=== PATIENT | female | born 1960 | race African-American/Black ===

== ENCOUNTER 2017-03-06 09:51 | Inpatient (IN) | payer OTHER ==
[2017-03-06 10:08] VITALS: BMI 18.8
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
[2017-03-06] MEDS ORDERED: P-EPHED 60MG/TRIPROLIDI 2.5MG TABLET PO PRN (10:29)
[2017-03-06] MEDS ORDERED: MAGNESIUM CITRATE 300 ML BOTTLE PO PRN (10:29)
[2017-03-06] MEDS ORDERED: chlordiazePOXIDE HCL 25 MG CAPSULE PO PRN (10:29)
[2017-03-06] MEDS ORDERED: MAGNESIUM HYDROX 2400MG/30ML ORAL SUSPENSION 30 ML CUP PO PRN (10:29)
[2017-03-06] MEDS ORDERED: hydrOXYzine PAMOATE 50 MG CAPSULE (FP) PO PRN (10:29)
[2017-03-06] MEDS ORDERED: ACETAMINOPHEN 325 MG TABLET (FP) PO PRN (10:29)
[2017-03-06] MEDS ORDERED: LOPERAMIDE HCL 2 MG CAPSULE PO PRN (10:29)
[2017-03-06] MEDS ORDERED: MAG HYDROX/AL HYDROX/SIMETH 30 ML UNIT-DOSE CUP PO PRN (10:29)
[2017-03-06] MEDS ORDERED: IBUPROFEN 400 MG TABLET (FP) PO PRN (10:29)
[2017-03-06] MEDS ORDERED: MENTHOL/PHENOL 1 EACH UD MM PRN (10:29)
[2017-03-06] MEDS ORDERED: ALBUTEROL SO4 6.7 GM HFA INHALER IH PRN (10:31)
[2017-03-06] MEDS ORDERED: chlordiazePOXIDE HCL 25 MG CAPSULE PO ONE (12:15)
[2017-03-06] MEDS: NICOTINE 14 MG/24 HOURS TOPICAL PATCH TD SCH (13:09)
[2017-03-06] MEDS: BUDESONIDE/FORMETEROL FUMARATE 160/4.5 mcg INHALER IH SCH ×2 (14:56→22:39)
[2017-03-06] MEDS: chlordiazePOXIDE HCL 25 MG CAPSULE PO SCH ×2 (18:00→22:38)
[2017-03-06] MEDS ORDERED: diphenhydrAMINE HCL 50 MG CAPSULE PO PRN (22:00)
[2017-03-06] MEDS: THIAMINE HCL 100 MG TABLET (FP) PO SCH (22:38)
[2017-03-07] MEDS: chlordiazePOXIDE HCL 25 MG CAPSULE PO SCH ×4 (05:46→22:33)
--- NOTE | 2017-03-07 09:35 | PN ---
S Progress Note Note: Psychiatry Attending's supervising floorperson note : Called to enter orders for risperdal and seroquel. Chart reviewed.S report is appreciated. Spoke to patient via telephone. Ms Banda is eager to resume medications. Pharmacy claims revisited.Doses verified. Patient is known to the [facility]. Followed by Dr Morris. Intervention : Seroquel 50 mg po hs Risperdal 1 mg po bid Ordered.Side effects/benefits discussed with patient.
[2017-03-07 10:02] LABS: MCH 29.1 pg (25.7-33.7); MCHC 32.5 g/dl (32.0-36.0); MEAN CELL VOLUME 89.5 fl (80-96); MEAN PLT VOLUME 8.5 fl (7.5-11.1); PLATELET COUNT 242 K/MM3 (134-434); RDW 16.5 % (11.6-15.6); WHITE BLOOD COUNT 4.8 K/mm3 (4.0-10.0)
[2017-03-07 10:07] LABS: ALBUMIN 3.4 g/dl (3.4-5.0); ALK PHOS 59 U/L (45-117); ANION GAP 7 (8-16); BILIRUBIN,TOTAL 0.9 mg/dL (0.2-1.0); CALCIUM 8.8 mg/dL (8.5-10.1); CO2 28 mmol/L (21-32); CREATININE 0.7 mg/dL (0.55-1.02); GLUCOSE,RANDOM 87 mg/dL (74-106); SGOT/AST 14 U/L (15-37); SGPT/ALT 20 U/L (12-78); TOT PROT 6.2 g/dl (6.4-8.2)
[2017-03-07 10:22] LABS: URINE APPEARANCE CLOUDY; URINE BILIRUBIN NEGATIVE (NEGATIVE); URINE COLOR DKYELLOW; URINE GLUCOSE (UA) NEGATIVE (NEGATIVE); URINE KETONE NEGATIVE (NEGATIVE); URINE NITRITE NEGATIVE (NEGATIVE); URINE PROTEIN NEGATIVE (NEGATIVE); URINE UROBILINOGEN NEGATIVE E.U./dl (0.2-1.0)
[2017-03-07 10:35] LABS: URINE BLOOD 2+ (NEGATIVE); URINE LEUK ESTERASE 3+ (NEGATIVE)
[2017-03-07] MEDS: PRENATAL VITAMINS W/ FOLIC ACID TABLET (FP) PO SCH (10:35)
[2017-03-07] MEDS: risperiDONE 1 MG TABLET (FP) PO SCH ×2 (10:35→22:32)
[2017-03-07] MEDS: BUDESONIDE/FORMETEROL FUMARATE 160/4.5 mcg INHALER IH SCH ×2 (10:36→22:33)
[2017-03-07] MEDS: NICOTINE 14 MG/24 HOURS TOPICAL PATCH TD SCH (10:38)
[2017-03-07 11:01] LABS: CALCIUM OXALATE CRYSTALS MODERATE /hpf (NONE SEEN); URINE MUCUS RARE; URINE RBC 33 /hpf (0-3); URINE WBC 126 /hpf (3-5)
--- NOTE | 2017-03-07 13:26 | PN ---
S CIWA - CIWA Score Nausea/Vomitin-No Nausea/No Vomiting Muscle Tremors: 3 Anxiety: 4-Mod. Anxious/Guarded Agitation: 4-Moderately Restless Paroxysmal Sweats: 3 Orientation: 0-Oriented Tacttile Disturbances: 0-None Auditory Disturbances: 0-None Visual Disturbances: 0-None Headache: 0-None Present CIWA-Ar Total Score: 14 BHS Progress Note (SOAP) Subjective: Anxiety,tremors,sweating,interrupted sleep,restless. Objective: 03/07/17 13:25 Vital Signs - 8 hr 03/07/17 03/07/17 06:00 09:56 Temperature 97.3 F L 98.2 F Pulse Rate 81 85 Respiratory 16 18 Rate Blood Pressure 96/67 113/75 Laboratory Tests 03/06/17 03/07/17 03/07/17 08:40 08:00 08:00 WBC 4.8 RBC 4.32 Hgb 12.6 Hct 38.7 MCV 89.5 MCHC 32.5 RDW 16.5 H Plt Count 242 MPV 8.5 Sodium 143 Potassium 4.0 Chloride 108 H Carbon Dioxide 28 Anion Gap 7 L BUN 14 Creatinine 0.7 Creat Clearance w eGFR > 60 Random Glucose 87 Calcium 8.8 Total Bilirubin 0.9 AST 14 L ALT 20 Alkaline Phosphatase 59 Total Protein 6.2 L Albumin 3.4 Urine Color Dkyellow Urine Appearance Cloudy Urine pH 5.0 Urine Protein Negative Urine Glucose (UA) Negative Urine Ketones Negative Urine Blood 2+ H Urine Nitrite Negative Urine Bilirubin Negative Urine Urobilinogen Negative Ur Leukocyte Esterase 3+ H Urine RBC 33 Urine WBC 126 Ur Epithelial Cells Many Calcium Oxalate Crystal Moderate Urine Mucus Rare RPR Titer 03/07/17 08:00 WBC RBC Hgb Hct MCV MCHC RDW Plt Count MPV Sodium Potassium Chloride Carbon Dioxide Anion Gap BUN Creatinine Creat Clearance w eGFR Random Glucose Calcium Total Bilirubin AST ALT Alkaline Phosphatase Total Protein Albumin Urine Color Urine Appearance Urine pH Urine Protein Urine Glucose (UA) Urine Ketones Urine Blood Urine Nitrite Urine Bilirubin Urine Urobilinogen Ur Leukocyte Esterase Urine RBC Urine WBC Ur Epithelial Cells Calcium Oxalate Crystal Urine Mucus RPR Titer Reactive 1:2 H labs noted,repeat u/a Assessment: 03/07/17 13:26 withdrawal sx. Plan: continue detox
[2017-03-07] MEDS: guaiFENesin/D-METHORPHAN HB 10 ML UNIT-DOSE CUPS PO PRN (14:07)
[2017-03-07] MEDS: THIAMINE HCL 100 MG TABLET (FP) PO SCH (22:32)
[2017-03-07] MEDS: QUEtiapine FUMARATE 50 MG TABLET PO SCH (22:32)
[2017-03-08] MEDS: guaiFENesin/D-METHORPHAN HB 10 ML UNIT-DOSE CUPS PO PRN (02:33)
[2017-03-08] MEDS: chlordiazePOXIDE HCL 25 MG CAPSULE PO SCH ×2 (06:20→10:41)
--- NOTE | 2017-03-08 09:11 | EKG ---
Test Reason : Blood Pressure : / mmHG Vent. Rate : 071 BPM Atrial Rate : 071 BPM P-R Int : 128 ms QRS Dur : 082 ms QT Int : 378 ms P-R-T Axes : 019 048 044 degrees QTc Int : 410 ms NORMAL SINUS RHYTHM WITH SINUS ARRHYTHMIA NORMAL ECG NO PREVIOUS ECGS AVAILABLE Confirmed by CONG MANDUJANO MD ([id number]) on 03/08/2017 9:10:45 AM Referred By: Confirmed By:CONG MANDUJANO MD
--- NOTE | 2017-03-08 09:28 | CONSULT ---
[facility] Psychiatric Consult - Data Date of interview: 03/08/17 Admission source: [facility] Identifying data: This is 56 years old female with psychiatric hospitalization history intoxicated with: Alcohol, Cannabis, Cocaine nad Nicotine Substance Abuse History: Smoking Cessation. Smoking history: Current every day smoker. Have you smoked in the past 12 months: Yes. Aproximately how many cigarettes per day: 10. Initiated information on smoking cessation: Yes. ' Breaking Loose' booklet given: 03/06/17 (give on floor). - Substance & Tx. History. Hx Alcohol Use: Yes. Hx Substance Use: Yes. Substance Use Type: Alcohol, Cocaine, Marijuana. Hx Substance Use Treatment: Yes ([facility]). - Substances Abused. Alcohol. Route: Oral. Frequency: Daily. Amount used: 2 pints, three 24 oz beers. Age of first use: 7. Date of Last Use: 03/05/17. Crack. Route: Smoking. Frequency: Daily. Amount used: four $20 hits. Age of first use: 15. Date of Last Use: 03/05/17. Marijuana/Hashish. Route: Smoking. Frequency: Daily. Amount used: 2 blunts. Age of first use: 7. Date of Last Use: 03/05/17. manuelito. Route: Inhalation. Frequency: 3-6 times per week. Amount used: three. Age of first use: 56. Date of Last Use: 03/05/17 Medical History: Asthma, Hisotory of Syphilis contact Psychiatric History: Patient reports history of Bipolar disorder, as per computer there is a history of MR. As per computer patient currently on: Risperdal 1mg po bid. Seroquel 100mg po qhs Physical/Sexual Abuse/Trauma History: Denies Additional Comment: Risperdal 1mg po bid. Seroquel 100mg po qhs Mental Status Exam - Mental Status Exam Alert and Oriented to: Person Cognitive Function: Fair Patient Appearance: Unkempt Mood: Sad Affect: Flat Patient Behavior: Sedated Speech Pattern: Delayed Voice Loudness: Mildly Soft/Quiet Thought Process: Circumstantial Thought Disorder: Being Controlled Hallucinations: Denies Suicidal Ideation: Denies Homicidal Ideation: Denies Insight/Judgement: Fair Sleep: Difficulty falling asleep Appetite: Weight loss Additional Comments: Risperdal 1mg po bid. Seroquel 100mg po qhs Psychiatric Findings - Problem List ([place] 1, 2,3) (1) Alcohol dependence with uncomplicated withdrawal Current Visit: Yes Status: Chronic (2) Cannabis dependence Current Visit: Yes Status: Chronic (3) Cocaine abuse Current Visit: Yes Status: Chronic (4) Nicotine dependence Current Visit: Yes Status: Chronic Qualifiers: Nicotine product type: cigarettes Substance use status: uncomplicated Qualified Code(s): F17.210 - Nicotine dependence, cigarettes, uncomplicated (5) Syphilis contact, treated Current Visit: Yes Status: Chronic (6) Alcohol dependence Current Visit: No Status: Acute (7) Bipolar disorder Current Visit: No Status: Acute (8) Mental retardation Current Visit: No Status: Acute (9) Mental retardation, borderline (I.Q. 70-85) Current Visit: No Status: Acute - Initial Treatment Plan Initial Treatment Plan: Risperdal 1mg po bid. Seroquel 100mg po qhs
[2017-03-08] MEDS: PRENATAL VITAMINS W/ FOLIC ACID TABLET (FP) PO SCH (10:40)
[2017-03-08] MEDS: BUDESONIDE/FORMETEROL FUMARATE 160/4.5 mcg INHALER IH SCH ×2 (10:40→22:26)
[2017-03-08] MEDS: NICOTINE 14 MG/24 HOURS TOPICAL PATCH TD SCH (10:40)
[2017-03-08] MEDS: risperiDONE 1 MG TABLET (FP) PO SCH ×2 (10:41→22:26)
--- NOTE | 2017-03-08 11:20 | PN ---
[facility] CIWA - CIWA Score Nausea/Vomitin-No Nausea/No Vomiting Muscle Tremors: 4-Moderate,w/Arms Extend Anxiety: 3 Agitation: 3 Paroxysmal Sweats: 3 Orientation: 0-Oriented Tacttile Disturbances: 0-None Auditory Disturbances: 0-None Visual Disturbances: 0-None Headache: 0-None Present CIWA-Ar Total Score: 13 S Progress Note (SOAP) Subjective: headache sweats tired cough interrupted sleep Objective: 03/08/17 11:21 Vital Signs Temperature 96.8 F L 03/08/17 10:02 Pulse Rate 74 03/08/17 10:02 Respiratory Rate 18 03/08/17 10:02 Blood Pressure 137/78 03/08/17 10:02 O2 Sat by Pulse Oximetry (%) Laboratory Tests 03/06/17 03/07/17 03/07/17 08:40 08:00 08:00 WBC 4.8 RBC 4.32 Hgb 12.6 Hct 38.7 MCV 89.5 MCHC 32.5 RDW 16.5 H Plt Count 242 MPV 8.5 Sodium 143 Potassium 4.0 Chloride 108 H Carbon Dioxide 28 Anion Gap 7 L BUN 14 Creatinine 0.7 Creat Clearance w eGFR > 60 Random Glucose 87 Calcium 8.8 Total Bilirubin 0.9 AST 14 L ALT 20 Alkaline Phosphatase 59 Total Protein 6.2 L Albumin 3.4 Urine Color Dkyellow Urine Appearance Cloudy Urine pH 5.0 Ur Specific [place] 1.025 Urine Protein Negative Urine Glucose (UA) Negative Urine Ketones Negative Urine Blood 2+ H Urine Nitrite Negative Urine Bilirubin Negative Urine Urobilinogen Negative Ur Leukocyte Esterase 3+ H Urine RBC 33 Urine WBC 126 Ur Epithelial Cells Many Calcium Oxalate Crystal Moderate Urine Mucus Rare RPR Titer T.pallidum Ab (MHA) 03/07/17 08:00 WBC RBC Hgb Hct MCV MCHC RDW Plt Count MPV Sodium Potassium Chloride Carbon Dioxide Anion Gap BUN Creatinine Creat Clearance w eGFR Random Glucose Calcium Total Bilirubin AST ALT Alkaline Phosphatase Total Protein Albumin Urine Color Urine Appearance Urine pH Ur Specific [place] Urine Protein Urine Glucose (UA) Urine Ketones Urine Blood Urine Nitrite Urine Bilirubin Urine Urobilinogen Ur Leukocyte Esterase Urine RBC Urine WBC Ur Epithelial Cells Calcium Oxalate Crystal Urine Mucus RPR Titer Reactive 1:2 H T.pallidum Ab (MHA) Reactive ua/urine c&s repeated awake/alert ambulating no acute distress Assessment: 03/08/17 11:21 withdrawal sx Plan: continue detox increase fluids robitussin prn
[2017-03-08] MEDS: chlordiazePOXIDE 5 MG CAPSULE PO SCH ×2 (17:39→22:26)
[2017-03-08] MEDS: QUEtiapine FUMARATE 50 MG TABLET PO SCH (22:26)
[2017-03-08] MEDS: THIAMINE HCL 100 MG TABLET (FP) PO SCH (22:27)
[2017-03-09] MEDS: chlordiazePOXIDE 5 MG CAPSULE PO SCH ×2 (05:47→10:49)
--- NOTE | 2017-03-09 10:46 | PN ---
BHS Progress Note (SOAP) Subjective: INTERRUPTED SLEEP, SWEATS, SHAKES, DIARRHEA Objective: 03/09/17 10:45 Vital Signs Temperature 97.2 F L 03/09/17 06:14 Pulse Rate 80 03/09/17 06:14 Respiratory Rate 16 03/09/17 06:14 Blood Pressure 103/69 03/09/17 06:14 O2 Sat by Pulse Oximetry (%) Laboratory Tests 03/06/17 03/07/17 03/07/17 08:40 08:00 08:00 WBC 4.8 RBC 4.32 Hgb 12.6 Hct 38.7 MCV 89.5 MCHC 32.5 RDW 16.5 H Plt Count 242 MPV 8.5 Sodium 143 Potassium 4.0 Chloride 108 H Carbon Dioxide 28 Anion Gap 7 L BUN 14 Creatinine 0.7 Creat Clearance w eGFR > 60 Random Glucose 87 Calcium 8.8 Total Bilirubin 0.9 AST 14 L ALT 20 Alkaline Phosphatase 59 Total Protein 6.2 L Albumin 3.4 Urine Color Dkyellow Urine Appearance Cloudy Urine pH 5.0 Ur Specific [place] 1.025 Urine Protein Negative Urine Glucose (UA) Negative Urine Ketones Negative Urine Blood 2+ H Urine Nitrite Negative Urine Bilirubin Negative Urine Urobilinogen Negative Ur Leukocyte Esterase 3+ H Urine RBC 33 Urine WBC 126 Ur Epithelial Cells Many Calcium Oxalate Crystal Moderate Urine Mucus Rare RPR Titer T.pallidum Ab (MHA) 03/07/17 08:00 WBC RBC Hgb Hct MCV MCHC RDW Plt Count MPV Sodium Potassium Chloride Carbon Dioxide Anion Gap BUN Creatinine Creat Clearance w eGFR Random Glucose Calcium Total Bilirubin AST ALT Alkaline Phosphatase Total Protein Albumin Urine Color Urine Appearance Urine pH Ur Specific [place] Urine Protein Urine Glucose (UA) Urine Ketones Urine Blood Urine Nitrite Urine Bilirubin Urine Urobilinogen Ur Leukocyte Esterase Urine RBC Urine WBC Ur Epithelial Cells Calcium Oxalate Crystal Urine Mucus RPR Titer Reactive 1:2 H T.pallidum Ab (MHA) Reactive PT AOX3 IN NAD AMBULATING Assessment: 03/09/17 10:45 WITHDRAWAL SX;S Plan: CONT.DETOX INCREASE FLUIDS D/C IN AM
[2017-03-09] MEDS: PRENATAL VITAMINS W/ FOLIC ACID TABLET (FP) PO SCH (10:48)
[2017-03-09] MEDS: NICOTINE 14 MG/24 HOURS TOPICAL PATCH TD SCH (10:48)
[2017-03-09] MEDS: risperiDONE 1 MG TABLET (FP) PO SCH ×2 (10:48→22:54)
[2017-03-09] MEDS: BUDESONIDE/FORMETEROL FUMARATE 160/4.5 mcg INHALER IH SCH ×2 (10:49→22:53)
[2017-03-09] MEDS: chlordiazePOXIDE HCL 10 MG CAPSULE PO SCH ×2 (17:51→22:54)
[2017-03-09] MEDS: QUEtiapine FUMARATE 50 MG TABLET PO SCH (22:54)
[2017-03-09] MEDS: THIAMINE HCL 100 MG TABLET (FP) PO SCH (22:54)
--- NOTE | 2017-03-10 03:12 | PN ---
[facility] Progress Note Note: CLIENT HAD AN UNWITNESSED FALL FROM HER BED. SHE WAS FOUND BY STAFF ON THE FLOOR NEXT TO HER BED. SHE CANNOT RECALL HOW SHE FELL BUT REPORTS SHE HIT HER HEAD. SHE IS LETHARGIC AND HER SPEECH IS SLURRED. PERRLA, FOLLOWS SIMPLE COMMANDS.. VS: BP: 115/74, P: 92, T: 97.9, SaO2: 92%, R: 15 FALL PROTOCOL 1 INITIATED AND PT. TRANSFERRED TO [facility] ER FOR FURTHER EVALUATION. REPORT GIVEN TO COLLEEN.
[2017-03-10] MEDS: chlordiazePOXIDE HCL 10 MG CAPSULE PO SCH (06:54)
--- NOTE | 2017-03-10 08:57 | DS ---
[facility] Detox Discharge Summary Admission Date: 03/06/17 Discharge Date: 03/10/17 - History Present History: Alcohol Dependence, Cannabis Dependence, Cocaine Dependence - Physical Exam Results Vital Signs: Vital Signs Temperature 97.7 F 03/10/17 06:40 Pulse Rate 81 03/10/17 06:40 Respiratory Rate 16 03/10/17 06:40 Blood Pressure 121/83 03/10/17 06:40 O2 Sat by Pulse Oximetry (%) - Treatment Hospital Course: Detox Protocol Followed, Detoxed Safely, Responded well, Discharged Condition Good, Rehab Referral Accepted - Medication Discharge Medications: Ambulatory Orders Albuterol Sulfate Inhaler - [Ventolin Hfa Inhaler -] 2 inh PO Q4H 03/06/17 Budesonide/Formeterol Fumarate [SYMBICORT 160/4.5mcg -] 1 inh PO BID 03/06/17 Risperidone [Risperdal -] 1 mg PO BID #60 tablet 03/08/17 Librium - 10 mg PO QID 03/10/17 Quetiapine Fumarate [Seroquel] 50 mg PO HS 03/10/17 - Diagnosis (1) Alcohol dependence with uncomplicated withdrawal Current Visit: Yes Status: Chronic (2) Asthma Current Visit: Yes Status: Chronic Qualifiers: Asthma severity: mild intermittent Asthma complication type: uncomplicated Qualified Code(s): J45.20 - Mild intermittent asthma, uncomplicated (3) Cannabis dependence Current Visit: Yes Status: Chronic (4) Cocaine abuse Current Visit: Yes Status: Chronic (5) Nicotine dependence Current Visit: Yes Status: Chronic Qualifiers: Nicotine product type: cigarettes Substance use status: uncomplicated Qualified Code(s): F17.210 - Nicotine dependence, cigarettes, uncomplicated (6) Syphilis contact, treated Current Visit: No Status: Chronic (7) Bipolar disorder Current Visit: No Status: Acute (8) Closed head injury Current Visit: No Status: Acute (9) Fall Current Visit: No Status: Acute Qualified Code(s): - (10) Mental retardation Current Visit: No Status: Acute (11) Mental retardation, borderline (I.Q. 70-85) Current Visit: No Status: Acute - AMA Did Patient Leave Against Medical Advice: No
[2017-03-10] MEDS: PRENATAL VITAMINS W/ FOLIC ACID TABLET (FP) PO SCH (09:32)
[2017-03-10] MEDS: risperiDONE 1 MG TABLET (FP) PO SCH (09:36)
[2017-03-10] MEDS: BUDESONIDE/FORMETEROL FUMARATE 160/4.5 mcg INHALER IH SCH (09:36)
[2017-03-10 10:59] VITALS: BP 100/67; PULSE 112; TEMP 97.9
== END 2017-03-10 09:36 | disposition home or self-care (01) | DRG 774 ==
LOC: YASAS 09:51 → Y6N 12:09
PROVIDERS: ADMIT Internal Medicine; ATTEND Internal Medicine Addiction Medicine
PROC: HZ2ZZZZ Detoxification Services for Substance Abuse Treatment (ICD-10-PCS; principal; 2017-03-06)
DX: F10.230 Alcohol dependence with withdrawal, uncomplicated (principal); F14.10 Cocaine abuse, uncomplicated; F17.210 Nicotine dependence, cigarettes, uncomplicated; F31.9 Bipolar disorder, unspecified; J45.20 Mild intermittent asthma, uncomplicated; Z87.42 Personal history of other diseases of the female genital tract; Z91.5 Personal history of self-harm; R41.83 Borderline intellectual functioning; S09.90XA Unspecified injury of head, initial encounter; W06.XXXA Fall from bed, initial encounter; Y93.89 Activity, other specified; Y92.230 Patient room in hospital as the place of occurrence of the external cause
CPT/HCPCS: 36415; 80053; 81003; 81015; 85027; 86593; 86780; 93005; 93010; J2794

== ENCOUNTER 2017-03-10 03:54 | Emergency (ER) | payer OTHER ==
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
[2017-03-10 04:18] VITALS: TEMP 97.7; BMI 18.8
[2017-03-10 05:17] VITALS: BP 129/85; PULSE 78
== END 2017-03-10 05:44 | disposition other institution (70) ==
LOC: JER 03:54
DX: S09.90XA Unspecified injury of head, initial encounter (principal); F10.20 Alcohol dependence, uncomplicated; F14.20 Cocaine dependence, uncomplicated; F12.20 Cannabis dependence, uncomplicated; F17.210 Nicotine dependence, cigarettes, uncomplicated; J45.909 Unspecified asthma, uncomplicated; Z91.5 Personal history of self-harm; W19.XXXA Unspecified fall, initial encounter; Y93.9 Activity, unspecified; Y92.239 Unspecified place in hospital as the place of occurrence of the external cause
CPT/HCPCS: 70450-TC; 72125-TC; 99282-25